=== PATIENT | male | born 1960 | race Caucasian/White ===

== ENCOUNTER 2024-10-02 17:02 | Inpatient (IN) | payer SELFPAY ==
[~2024-10-02] VITALS: Ht 160 cm; Wt 49.9 kg
[2024-10-02] MEDS: SODIUM CHLORIDE 0.9% 1,000 ML IV ONE ×2 (17:16→17:46)
[2024-10-02] MEDS: PANTOPRAZOLE SODIUM 40 MG/VIAL IV ONE (17:19)
[2024-10-02] MEDS: ONDANSETRON HCL 4MG/2ML INJ IV STA (17:19)
[2024-10-02 17:37] LABS: BASOPHILS % 0.6 % (0.0-2.0); DIFFERENTIAL COMMENT 0; EOSINOPHILS % 0.4 % (0.0-5.0); HEMATOCRIT. 31.9 % (42.0-52.0); HEMOGLOBIN. 10.5 g/dL (14.0-18.0); LYMPHOCYTES % 14.7 % (20.0-50.0); MEAN CORPUSCULAR HEMOGLOBIN 32.8 pg (28.0-32.0); MEAN CORPUSCULAR HGB CONC 32.8 g/dL (31.0-37.0); MEAN CORPUSCULAR VOLUME 100.1 fL (80.0-94.0); MEAN PLATELET VOLUME 9.3 fl (7.4-10.4); MONOCYTES % 5.9 % (2.0-8.0); NEUTROPHILS % 78.4 % (40.0-76.0); PLATELET 109 x1000/uL (130-400); RED BLOOD CELL COUNT 3.19 mill/uL (4.7-6.1); RED CELL DISTRIBUTION WIDTH 14.8 % (11.6-14.6); WHITE BLOOD COUNT 11.4 x1000/uL (4.5-11.0)
[2024-10-02 17:39] LABS: CHLORIDE 105 mEq/L (98-107); POTASSIUM 5.5 mEq/L (3.5-5.1); SODIUM 135 mEq/L (136-145)
[2024-10-02 17:40] LABS: CARBON DIOXIDE 21 mEq/L (21-32)
[2024-10-02 17:41] LABS: CALCIUM 7.9 mg/dL (8.7-10.4)
[2024-10-02 17:43] LABS: INR 1.2; PROTHROMBIN TIME 12.8 sec (9.6-11.0)
[2024-10-02 17:45] LABS: CREATININE 1.1 mg/dL (0.6-1.3)
[2024-10-02 17:46] LABS: TROPONIN I HIGH SENSITIVITY 42 ng/L (3.0-53); UREA NITROGEN BLOOD 21 mg/dL (9-23)
[2024-10-02 17:52] LABS: GLUCOSE 447 mg/dL (70-105)
[2024-10-02] MEDS: INSULIN REGULAR (HUMULIN R) 1000UNITS/10ML VIAL SUBCUT ONE (18:48)
[2024-10-03] VITALS (11 sets, daily range): BP systolic 110–139; BP diastolic 62–78; PULSE 19–98; RESP 13–19; TEMP 36.6–37; O2SAT 98–100
[2024-10-03] MEDS ORDERED: ONDANSETRON HCL 4MG/2ML INJ IV PRN (03:30)
[2024-10-03] MEDS ORDERED: DEXTROSE 50% WATER 50ML SYRINGE IV PRN (03:45)
[2024-10-03] MEDS: SODIUM CHLORIDE 0.9% 1,000 ML IV SCH (05:12)
[2024-10-03 07:50] LABS: BASOPHILS % 0.3 % (0.0-2.0); EOSINOPHILS % 0.4 % (0.0-5.0); HEMATOCRIT. 30.1 % (42.0-52.0); HEMOGLOBIN. 10.1 g/dL (14.0-18.0); LYMPHOCYTES % 20.2 % (20.0-50.0); MEAN CORPUSCULAR HGB CONC 33.6 g/dL (31.0-37.0); MEAN CORPUSCULAR VOLUME 98.2 fL (80.0-94.0); MEAN PLATELET VOLUME 9.2 fl (7.4-10.4); MONOCYTES % 7.4 % (2.0-8.0); NEUTROPHILS % 71.7 % (40.0-76.0); PLATELET 100 x1000/uL (130-400); RED BLOOD CELL COUNT 3.06 mill/uL (4.7-6.1); RED CELL DISTRIBUTION WIDTH 14.4 % (11.6-14.6); WHITE BLOOD COUNT 11.6 x1000/uL (4.5-11.0)
[2024-10-03 08:02] LABS: CHLORIDE 109 mEq/L (98-107); POTASSIUM 4.6 mEq/L (3.5-5.1); SODIUM 142 mEq/L (136-145)
[2024-10-03 08:03] LABS: CARBON DIOXIDE 25 mEq/L (21-32)
[2024-10-03 08:04] LABS: CALCIUM 8.4 mg/dL (8.7-10.4)
[2024-10-03 08:08] LABS: CREATININE 0.8 mg/dL (0.6-1.3); UREA NITROGEN BLOOD 28 mg/dL (9-23)
[2024-10-03 08:10] LABS: ALANINE AMINOTRANSFERASE 54 IU/L (10-49); ALBUMIN 2.5 g/dL (3.2-4.8); ASPARTATE AMINOTRANSFERASE 58 IU/L (<34)
[2024-10-03 08:11] LABS: BILIRUBIN TOTAL 1.5 mg/dL (0.1-1.0); PROTEIN TOTAL 5.8 g/dL (6.0-8.3)
[2024-10-03] MEDS: BLOOD SUGAR DIAGNOSTIC STRIP TEST SCH (08:12)
[2024-10-03] MEDS: INSULIN LISPRO 100 UNITS/ML SUBCUT SCH (08:14)
[2024-10-03] MEDS: PANTOPRAZOLE SODIUM 40 MG/VIAL IV SCH (08:23)
[2024-10-03 10:13] LABS: GLUCOSE 242 mg/dL (70-105)
[2024-10-03] MEDS: INSULIN GLARGINE 100 UNITS/ML SUBCUT NR (13:13)
[2024-10-03 16:42] LABS: HEMATOCRIT 28.6 % (42.0-52.0); HEMOGLOBIN 9.5 g/dL (14.0-18.0)
[2024-10-03] MEDS ORDERED: INSULIN GLARGINE 100 UNITS/ML SUBCUT SCH (22:00)
== END 2024-10-03 18:38 | disposition home or self-care (01) | DRG 242 ==
LOC: ER 17:02 → 5EST 20:04 → EDBEDREQ 20:54 → EDBEDREQTM 20:54
PROVIDERS: ADMIT Internal Medicine; ATTEND Internal Medicine
DX: K22.6 Gastro-esophageal laceration-hemorrhage syndrome (principal); R57.9 Shock, unspecified; E87.5 Hyperkalemia; D64.9 Anemia, unspecified; E11.65 Type 2 diabetes mellitus with hyperglycemia; Z79.899 Other long term (current) drug therapy
CPT/HCPCS: 36415; 71045; 80048; 80053; 82962; 83036; 84484; 85014; 85018; 85025; 86850; 86900; 93005; 99291; J1815; J2405; J2470; J7030